=== PATIENT | female | born 2000 | race Caucasian/White ===

== ENCOUNTER 2023-06-10 08:47 | Emergency (ER) | payer BC ==
[~2023-06-10 08:47] MED LIST: Iopamidol 370 76% 100 ML VIAL ONE
[2023-06-10] MEDS ORDERED: Ketorolac Tromethamine 30 MG/ML VIAL ONE (09:48)
[2023-06-10] MEDS ORDERED: Dexamethasone 10 MG/ML VIAL ONE (09:48)
[2023-06-10] MEDS ORDERED: Lactated Ringer's 1,000 ML ONE ×2 (09:48→10:27)
[2023-06-10] MEDS ORDERED: Ondansetron PF 4 MG/2 ML Vial ONE (09:48)
[2023-06-10 09:53] LABS: %Eosinophils 0.9 % (0.0-10.0); %Lymphocytes 16.1 % (21.0-51.0); %Monocytes 8.3 % (0.0-10.0); %Neutrophils 73.6 % (42.0-75.0); Hematocrit 43.5 % (36.0-47.0); Hemoglobin 14.3 g/dL (12.0-16.0); INR-International Normal Ratio 1.1; Mean Corpuscular HGB CONC 32.9 g/dL (32.0-36.0); Mean Corpuscular Hemoglobin 28.2 pg (27.0-31.0); Mean Corpuscular Volume 85.8 fl (78.0-98.0); Mean Platelet Volume 8.3 fL (7.4-10.4); Platelet Count 297 10x3/uL (130-400); Prothrombin Time 14.6 sec (12.0-14.7); RBC Distribution Width 11.9 % (11.5-14.5); Red Blood Cell (RBC) Count 5.07 mill/uL (4.20-5.40); White Blood Cell (WBC) Count 15.2 10x3/uL (4.8-10.8)
[2023-06-10 09:54] LABS: #Basophils 0.1 thou/uL (0.0-0.2); #Eosinphils 0.1 thou/uL (0.0-0.7); #Lymphocytes 2.5 thou/uL (1.20-3.40); #Monocytes 1.3 thou/uL (0.11-0.59); #Neutrophils 11.2 thou/uL (1.40-6.50); PTT 38.9 sec (22.9-36.1)
[2023-06-10 10:02] LABS: ALT (SGPT) 19 U/L (8-55); AST (SGOT) 13 U/L (5-34); Albumin 4.2 g/dL (3.5-5.0); Alkaline Phosphatase 86 U/L (40-110); Anion Gap 16 mmol/L (10-20); BUN (Urea Nitrogen) 10 mg/dL (7.0-18.7); Bilirubin, Total 0.8 mg/dL (0.2-1.2); Calc. Creatinine Clearance 0 mL/min (70-130); Calcium 9.7 mg/dL (7.8-10.44); Carbon Dioxide 23 mmol/L (22-29); Chloride 105 mmol/L (98-107); Estimated GFR 107; Globulin 3.8 g/dL (2.4-3.5); Glucose 107 mg/dL (70-105); Sodium 140 mmol/L (136-145)
[2023-06-10 10:03] LABS: BHCG - Serum Negative (NEGATIVE); Pregs Control Background? CLEAR/WHITE (CLR/WHITE); Pregs Control Bar Appear? YES (CONTROL BAR)
[2023-06-10 10:22] LABS: Troponin I Less than 0.010 ng/mL (< 0.028)
[2023-06-10 12:46] LABS: Troponin I Less than 0.010 ng/mL (< 0.028)
== END 2023-06-10 13:37 | disposition home or self-care (01) ==
LOC: MADERS 08:47
DX: J02.0 Streptococcal pharyngitis (principal)
CPT/HCPCS: 70491; 71045; 80053; 83605; 84484; 84703; 85025; 85610; 85730; 87040; 87149; 93005; 94760; 96361; 96374; 96375; J1100; J1885; J2405; J7120; Q9967